=== PATIENT | female | born 2000 | race Caucasian/White ===

== ENCOUNTER → 2020-04-03 | Outpatient (CLI) | payer MEDICAID ==
--- NOTE | 2020-04-03 15:24 | Diagnostic Imaging Report ---
INDICATION: survey. TECHNIQUE: Multiple real-time grayscale images were obtained over the gravid uterus. COMPARISON: None FINDINGS: There is a single live fetus in a transverse presentation, head to maternal right. heart rate was recorded at 155 bpm. Placenta is posterior. Amniotic fluid index is 10.4 cm. Cervical length is 4.1 cm. No placenta previa is identified. survey demonstrates the both kidneys having slight prominence of the renal pelves. These are approximately 3 mm in diameter. Bladder and stomach are unremarkable. brain is unremarkable. There is a four-chamber heart. There is a three-vessel cord with normal insertion. spine is unremarkable. Maternal adnexa was not evaluated. Biometrical measurements are as follows: Biparietal 4.76 cm, age 20 weeks 3 days. Head circumference 17.85 cm, age 20 weeks 3 days. Abdominal circumference 16.18 cm, age 21 weeks 2 days. Femur length 3.48 cm, age 21 weeks 0 days. Sonographic estimate age: 20 weeks 6 days. Sonographic estimated date of delivery: 08/15/2020. Estimated Weight: 394 gm (+/- 58 gm). LMP percentile: 38%. heart rate: 155 beats per minute. number: 1 of 1. IMPRESSION: Single live IUP 20 weeks 6 days gestational age with estimated date of confinement sonographically of 08/15/2020. survey is unremarkable apart from slight prominence of bilateral renal pelves. Follow-up could be performed. Dictated by: Dictated on workstation # [id number]
== END ==
LOC: RAD 03-30 10:51
PROVIDERS: ATTEND Nurse Practitioner Women's Health
DX: Z34.92 Encounter for supervision of normal pregnancy, unspecified, second trimester (principal); Z3A.20 20 weeks gestation of pregnancy
CPT/HCPCS: 76805

== ENCOUNTER 2020-08-07 07:00 | Inpatient (IN) | payer MEDICAID ==
[2020-08-07] VITALS (63 sets, daily range): BP systolic 101–145; BP diastolic 55–92
[~2020-08-07] VITALS: Ht 170.2 cm; Wt 73.5 kg
--- NOTE | 2020-08-07 07:12 | NUR ---
MONIQUE NAJERA presented to unit from Home, accompanied by Significant Other, with c/o INDUCTION. MONIQUE NAJERA weighed, gowned, voided, and to bed. EFHM and TOCO applied, VS taken. MONIQUE NAJERA oriented to bed controls, call light, TV, heat, and A/C controls.
[2020-08-07] MEDS ORDERED: OXYTOCIN PRE-MIX DRIP 500 ML IV ONE (07:44)
[2020-08-07] MEDS ORDERED: D5 LR IV SOLUTION 1,000 ML IV ONE (07:44)
--- NOTE | 2020-08-07 07:45 | History & Physical ---
History and Physical Date Seen by Provider: Aug 07, 2020 Time Seen by Provider: 07:43 this patient is a 20-year-old 1 white female currently at 39 weeks gestation admitted for elective induction of labor. Her has been uncomplicated. She denies rupture membranes or bleeding. Her GBS culture after 35 weeks gestation was negative. Allergies are none. Medications are vitamins Medical social and surgical histories are per her antepartum record HEENT exam is normal Neck is supple no lymphadenopathy no thyromegaly Abdomen is gravid soft nontender nondistended Extremities show no clubbing or cyanosis. There is no Homans sign. Pelvic exam is pending Assessment and plan term at 39+ weeks gestation admitted for elective induction of labor. We anticipate a vaginal delivery at 39+ weeks admitted for induction of labor Allergies and Home Medications Patient Home Medication List Home Medication List Reviewed: Yes BOZENA DAVENPORT MD Aug 07, 2020 07:45
[2020-08-07] MEDS: D5 LR IV SOLUTION 1,000 ML IV SCH ×2 (07:58→14:12)
[2020-08-07] MEDS: OXYTOCIN PRE-MIX DRIP 500 ML IV SCH ×2 (07:58→20:36)
[2020-08-07 08:12] LABS: BASOPHILS % (AUTO) 0 % (0-10); EOSINOPHILS # (AUTO) 0.1 10^3/uL (0.0-0.3); EOSINOPHILS % (AUTO) 1 % (0-10); HEMATOCRIT 35 % (35-52); HEMOGLOBIN 11.9 g/dL (11.5-16.0); LYMPHOCYTES # (AUTO) 1.7 10^3/uL (1.0-4.0); LYMPHOCYTES % (AUTO) 14 % (12-44); MEAN CORPUSCULAR HEMOGLOBIN 30 pg (25-34); MEAN CORPUSCULAR HGB CONC 34 g/dL (32-36); MEAN CORPUSCULAR VOLUME 89 fL (80-99); MEAN PLATELET VOLUME 11.3 fL (9.0-12.2); MONOCYTES # (AUTO) 1.6 10^3/uL (0.0-1.0); MONOCYTES % (AUTO) 13 % (0-12); NEUTROPHILS # (AUTO) 8.8 10^3/uL (1.8-7.8); NEUTROPHILS % (AUTO) 71 % (42-75); PLATELET COUNT 165 10^3/uL (130-400); WHITE BLOOD COUNT 12.4 10^3/uL (4.3-11.0)
[2020-08-07] MEDS ORDERED: fentaNYL 2 mcg/ml BUPIVA 0.125 100 ML ONE (08:54)
[2020-08-07] MEDS ORDERED: BUPIVACAINE 0.25% 30 ML (SENSORCAINE) VIAL ONE (09:26)
[2020-08-07] MEDS ORDERED: fentaNYL INJECTION 100 MCG/2 ML AMP ONE (09:26)
[2020-08-07] MEDS ORDERED: LACTATED RINGERS 1,000 ML IV ONE ×2 (09:29)
[2020-08-07] MEDS ORDERED: ONDANSETRON 4 MG/2 ML (SDV) Z0FRAN IV PRN (09:30)
[2020-08-07] MEDS ORDERED: NALOXONE 0.4 MG/ML 1 ML (NARCAN) VIAL IV PRN (09:30)
[2020-08-07] MEDS ORDERED: EPIDURAL (fentaNYL 2 MCG/ML BUPIVA 0.125%)100 ML BAG EPI PRN (09:30)
[2020-08-07] MEDS ORDERED: fentaNYL INJECTION 100 MCG/2 ML AMP INJ ONE (09:30)
--- NOTE | 2020-08-07 09:32 | NUR ---
Theresa Velasco GOVERNMENT GAUGER here for epidural placement. Procedure explained, consent reviewed and signed by anesthesia. Questions answered to patient's satisfaction. Time out taken to verify correct patient/procedure. Patient up to side of bed, assisted into sitting position. Betadine prep done x3 and sterile drape applied. Local done, see anesthesia record. Test dose given, see anesthesia record for drug and dosage. Epidural catheter secured in place. Epidural placement complete. Assisted back into bed, monitors adjusted. Epidural dosed, see anesthesia record. Epidural of Fentanyl/Bupivicaine @ 12 cc/hr stated per pump. Patient tolerated procedure well.
[2020-08-07] MEDS ORDERED: LIDOCAINE PF 2% 5 ML (XYLOCAINE) VIAL ONE (09:48)
[2020-08-07] MEDS: fentaNYL 2 mcg/ml BUPIVA 0.125 100 ML EPI PRN ×2 (10:01→17:03)
[2020-08-07] MEDS ORDERED: CITRIC ACID/SOB CIT (BICITRA) 30 ML UDC PO PRN (10:30)
[2020-08-07] MEDS ORDERED: FLU QUADRIvalent (3YOA+) 60 mcg/0.5 ml 2020-21 (AFLURIA) IM ONE (12:30)
[2020-08-07] MEDS ORDERED: PREN1TAB79 PO (14:54)
[2020-08-07] MEDS ORDERED: OMEP20TA33 PO (14:54)
--- NOTE | 2020-08-07 19:00 | NUR ---
Report to Denisse Joya RN.
[2020-08-07] MEDS ORDERED: LIDOCAINE/EPI 2% 1:200,00 (XYLOCAINE) 10 ML VIAL ONE ×3 (19:04→20:02)
--- NOTE | 2020-08-07 20:35 | NUR ---
2034: [facility]. Fundus massaged. expressed multiple clots. After clots expressed, bleeding is minimal. Fundus is firm and -1 umbilicus. Pericare provided to pt and pt. taken out of [facility]. 2044: Fundus massaged and is -1 umbilicus. Minimal bleeding noted and no clots expressed. 2099: Fundus massaged and is -1 umbilicus. Minimal bleeding noted and no clots expressed. 2114: Fundus massaged and is -1 umbilicus. Moderate bleeding noted and no clots expressed. 2129: Fundus massaged and is -1 umbilicus. Minimal bleeding noted and no clots expressed. 2144: Fundus massaged and is at umbilicus. Minimal bleeding noted and no clots expressed. 2214: Fundus massaged and is +1 umbilicus. Minimal bleeding noted and no clots expressed. Pt. bladder is full and pt expresses need to void.
[2020-08-07] MEDS ORDERED: OXYTOCIN PRE-MIX DRIP 500 ML IV SCH (21:39)
[2020-08-07] MEDS ORDERED: TETANUS,DIPTH,PERTUSS P/F (BOOSTRIX) 0.5 ML VIAL IM ONE (21:45)
[2020-08-07] MEDS ORDERED: MEASLES,MUMPS,RUBELLA 1 EA INJ SC ONE (21:45)
[2020-08-07] MEDS ORDERED: BENZOCAINE/MENTHOL (DERMOPLAST) 60 ML CAN TP PRN (21:45)
[2020-08-07] MEDS ORDERED: ONDANSETRON 4 MG/2 ML (SDV) Z0FRAN IVP PRN (21:45)
[2020-08-07] MEDS ORDERED: KETOROLAC 30 MG/ML VIAL ONE (21:58)
[2020-08-07] MEDS: KETOROLAC 30 MG/ML VIAL IVP SCH (22:06)
--- NOTE | 2020-08-07 22:35 | NUR ---
Pt. up to the bathroom to void. Pt. voided with nurse assist. Clean gown, pad, and underwear put on. Pericare taught. Pt. transferred to wheelchair and transferred to room.
[2020-08-08 02:45] VITALS: BP 117/64
[2020-08-08] MEDS ORDERED: oxyCODONE/APAP 5/325MG (PERCOCET 5) TABLET ONE (03:53)
[2020-08-08] MEDS: KETOROLAC 30 MG/ML VIAL IVP SCH (04:02)
--- NOTE | 2020-08-08 04:16 | OPERATIVE REPORT ---
DATE OF SERVICE: 08/07/2020 DELIVERY NOTE The patient delivered by term spontaneous vaginal delivery a viable female infant with Apgars of 8 and 9 at 1 and 5 minutes respectively, weight of 6 pounds 9 ounces, time of 2019 and a cord blood pH is pending at the time of delivery. The was delivered over midline episiotomy which was performed when the mom had pushed the baby down to the perineum and requested assistance with the delivery because she did not feel she could push any longer for any harder. the maternal expulsive effort was not adequate to push the baby through the perineum. Episiotomy was performed and the patient delivered with the next two pushes. The was bulb suctioned on delivery onto the perineum. The umbilical cord was doubly clamped when it was relatively pulseless and the father cut the cord, the baby was passed to mom's abdomen. Cord bloods were obtained. The placenta delivered spontaneously Ramon. It was normal with a 3-vessel cord. The cervix, vagina, rectum, and perineum were examined and found intact, except for the midline episiotomy, which was repaired with a single suture of 3-0 Vicryl Rapide in the usual manner to good hemostasis and good reapproximation. The patient tolerated the procedure, the delivery and the repair well. The repair was performed under local analgesia augmenting the epidural. Sponge and needle counts were correct on completion of the delivery. Estimated blood loss was around 250 mL. The patient remained in the LDR for recovery. The baby remained with the mom. Job ID: [id number] DocumentID: [id number] Dictated Date: 08/07/2020 20:45:07 Automation Machine Operator Date: 08/08/2020 04:15:34 Dictated By: BOZENA DAVENPORT MD [facility]
[2020-08-08 07:02] VITALS: BP 106/61
--- NOTE | 2020-08-08 07:49 | NUR ---
Dr. Amaral here to see patient. Discussed putting in social human services assistants consult r/t patient's risk for PP depression.
--- NOTE | 2020-08-08 08:01 | Progress Note ---
Standard Progress Note Progress Notes/Assess & Plan Date Seen by a Provider: Aug 08, 2020 Time Seen by a Provider: 08:00 Progress/Assessment & Plan this patient is doing well. She is ambulating, voiding, tolerating oral intake well has good pain control. Vital Signs 08/08/20 07:02 Temp 36.6 Pulse 80 Resp 20 B/P (MAP) 106/61 (76) Pulse Ox 100 O2 Delivery Room Air vital signs are stable. Patient is afebrile. The abdomen is benign. Fundus is firm below the umbilicus and nontender. Extremities show no clubbing or cyanosis. There is no Homans sign. Assessment and plan day number 1 status post spontaneous vaginal delivery at 39+ weeks gestation. Patient doing well will have routine convalescence care today and likely discharge home tomorrow Final Diagnosis 39 week spontaneous vaginaldelivery BOZENA DAVENPORT MD Aug 08, 2020 08:01
[2020-08-08] MEDS ORDERED: IBUP-1780 PO (08:05)
[2020-08-08] MEDS ORDERED: DCS100C PO (08:05)
[2020-08-08] MEDS ORDERED: OXYC1TAB87 PO (08:05)
--- NOTE | 2020-08-08 08:05 | Discharge Inst-Surgical ---
Discharge Inst-Surgical Depart Medication/Instructions New, Converted or Re-Newed RX: RX on Chart Consults/Follow Up Patient Instructions: as directed Orders & Referrals Follow Up Appt: Call to make follow up appt. for patient in 4 weeks. Activity Per routine post vaginal delivery instructions. Please call in RX to patient pharmacy. Diet as tolerated Patient may shower or tub bathe as desired. Activity Activity as Tolerated: No Diet Discharge Diet: No Restrictions BOZENA DAVENPORT MD Aug 08, 2020 08:05
[2020-08-08] MEDS: IBUPROFEN 800 MG (MOTRIN) TAB PO SCH ×4 (08:41→21:11)
[2020-08-08] MEDS: DOCUSATE SODIUM 100 MG (COLACE) CAP PO SCH ×2 (08:41→21:11)
[2020-08-08] MEDS: oxyCODONE/APAP 5/325MG (PERCOCET 5) TABLET PO PRN ×2 (08:42→16:40)
[2020-08-08 08:44] VITALS: BP 117/73
--- NOTE | 2020-08-08 08:44 | NUR ---
AM shift assessment completed and vital signs obtained, see interventions. Plan of care reviewed with patient. Patient verbalizes understanding and questions answered. Addendum: 08/08/20 at 1512 by BONITA FRANKLIN RN Scheduled Colace and Motrin PO given. Percocet 2 PO given for patient's c/o pain rated 7/10. Flu vaccine administered, see EMAR. VIS sheet provided to patient.
[2020-08-08] MEDS ORDERED: WITCH HAZEL(TUCKS) 40 EA JAR ONE (09:00)
[2020-08-08] MEDS ORDERED: WITCH HAZEL(TUCKS) 40 EA JAR TOP PRN (09:15)
--- NOTE | 2020-08-08 10:02 | Anesthesia-Regional Post-Op ---
Regional Patient Condition Mental Status: Alert, Oriented x3 Circulation: Same as Pre-Op Headache: Absent Sensation: Full Recovery Motor Block: Absent Post Op Complications Complications None Follow Up Care/Instructions Patient Instructions None needed. Anesthesia/Patient Condition Patient is doing well, no complaints, stable vital signs, no apparent adverse anesthesia problems. No complications reported per nursing. D/C home per [facility] Criteria: ROBINSON Meredith CRNA Aug 08, 2020 10:02
--- NOTE | 2020-08-08 11:51 | NUR ---
CM/SS: Visited with pt as per consult related to post depression and support Plan: Pt to return home with baby when deemed appropriate Summary: Pt is open to visit with this worker. She is in bed with baby and significant other. Pt reports feeling ok. Discuss services of [facility], [employer], WIC, and follow up services for pt and baby. Pt reports that the baby has a physician, however she is unable to remember it at this time. She is encouraged to follow up with the all appts for both her and baby as well as letting WIC know she has delivered. Significant other reports he has already done so. Educated on post depression and letting doctor know if you have a change in your mood out of the ordinary. Pt verbalizes understanding. Pt identifies support as her mother and family of significant other. Pt is educated on sleeping with baby as the baby is in the bed with pt and pt indicates she will be feeding baby shortly. Pt is very pleasant and asked for this workers contact information if she should have questions, a business card with the contact number for this worker is left with pt. This worker will follow up. Let JEWELL Gilman know that I have finished talking with pt as per consult.
[2020-08-08 13:24] VITALS: BP 91/52
[2020-08-08 16:43] VITALS: BP 113/71
--- NOTE | 2020-08-08 19:30 | NUR ---
Report to Dillon Sanchez RN.
--- NOTE | 2020-08-08 20:15 | NUR ---
Assessments done. No needs at this time. Questions answered
[2020-08-08 20:45] VITALS: BP 102/61
--- NOTE | 2020-08-09 00:15 | NUR ---
No needs at this time. Resting quietly with baby in bassinet
[2020-08-09] MEDS: IBUPROFEN 800 MG (MOTRIN) TAB PO SCH ×2 (03:01→08:55)
[2020-08-09 04:00] VITALS: BP 122/76
--- NOTE | 2020-08-09 07:22 | NUR ---
Report given to Sydnee CORCORAN
--- NOTE | 2020-08-09 08:17 | Progress Note ---
Standard Progress Note Progress Notes/Assess & Plan Date Seen by a Provider: Aug 09, 2020 Time Seen by a Provider: 08:16 Progress/Assessment & Plan this patient is doing well. She is ambulating, voiding, tolerating oral intake well has good pain control. Vital Signs 08/08/20 07:02 Temp 36.6 Pulse 80 Resp 20 B/P (MAP) 106/61 (76) Pulse Ox 100 O2 Delivery Room Air vital signs are stable. Patient is afebrile. The abdomen is benign. Fundus is firm below the umbilicus and nontender. Extremities show no clubbing or cyanosis. There is no Homans sign. Assessment and plan day number 1 status post spontaneous vaginal delivery at 39+ weeks gestation. Patient doing well will have routine convalescence care today and likely discharge home tomorrow August 09, 2020 Patient is without complaint.patient requesting discharge home. Vital Signs Date Time Temp Pulse Resp B/P (MAP) Pulse Ox O2 Delivery O2 Flow Rate FiO2 08/09/20 04:00 36.7 91 18 122/76 (91) 98 Room Air 08/08/20 20:45 36.6 83 18 102/61 (75) 99 08/08/20 16:43 36.5 88 16 113/71 (85) 99 Room Air 08/08/20 13:24 36.5 70 16 91/52 (65) 98 Room Air 08/08/20 08:44 37.1 102 18 117/73 (88) 98 Room Air vital signs are stable patient is afebrile Fundus is firm below the umbilicus and nontender Extremities show no clubbing and no cyanosis there is no Homans sign Assessment and plan day 2 status post term spontaneous vaginal delivery at 39 weeks. Plan is for discharge home Final Diagnosis 39 week spontaneous vaginal delivery BOZENA DAVENPORT MD Aug 09, 2020 08:17
[2020-08-09] MEDS: DOCUSATE SODIUM 100 MG (COLACE) CAP PO SCH (08:55)
[2020-08-09 09:49] VITALS: BP 127/84
--- NOTE | 2020-08-09 12:50 | NUR ---
Discharge instructions explained to pt with copy provided. Pt verbalizes understanding and signs to verify. Denies any needs or concerns at this time.
--- NOTE | 2020-08-09 13:55 | NUR ---
Pt ambulates off unit with , S.O, RN, and all personal belongings to private vehicle. No s/s of distress.
== END 2020-08-09 13:55 | disposition home or self-care (01) | DRG 807 ==
LOC: LDRP 07:00
PROVIDERS: ADMIT Obstetrics & Gynecology; ATTEND Obstetrics & Gynecology
PROC: 10E0XZZ Delivery of Products of Conception, External Approach (ICD-10-PCS; principal; 2020-08-07)
PROC: 0W8NXZZ Division of Female Perineum, External Approach (ICD-10-PCS; 2020-08-07)
DX: O80 Encounter for full-term uncomplicated delivery (principal); Z37.0 Single live birth; Z3A.39 39 weeks gestation of pregnancy
CPT/HCPCS: 36415; 85025; 86850; 86900; 86901; 90686